=== PATIENT | female | born 1955 | race Caucasian/White ===

== ENCOUNTER 2023-09-17 18:21 | Emergency (ER) | payer OTHER, SELFPAY ==
--- NOTE | ~2023-09-17 | CT_ITS ---
EXAMINATION: CT HEAD WITHOUT CONTRAST CT CERVICAL SPINE WITHOUT CONTRAST CLINICAL INFORMATION: Fall. Pain. COMPARISON: None available. TECHNIQUE: Contiguous axial imaging was performed through the head and cervical spine without intravenous administration of contrast. Sagittal and coronal reformatted images also obtained. This CT examination was performed using dose optimization techniques as appropriate, variously including the following: *Automated exposure control *Adjustment of mA and/or kV according to patient size (this includes techniques or standardized protocols for targeted exams where dose is matched to indication/reason for exam; i.e. extremities or head) *Use of iterative reconstruction technique DLP: 1003 mGy-cm FINDINGS: The lateral, third and fourth ventricles are normally outlined. The cortical sulci and basal cisterns are normally outlined as well. There is no acute territorial defect, hemorrhage or midline shift. The extra-axial spaces are unremarkable. Calvarium/scalp: Intact. Maxillofacial sinuses and mastoids: Clear as visualized. Cervical spine: There is straightening of the expected cervical spine curvature. There is diffuse zkjn-nu-urkxluib cervical disc degenerative change with loss of disc space, endplate change and posterior osteophytes associated with mild diffuse facet osteoarthritic hypertrophic change with multilevel hfck-fu-rbofmted spinal canal narrowing and multilevel mild neuroforaminal narrowing. The bony structures are osteopenic. No fracture is seen. The soft tissues are unremarkable. The visualized upper lung palma are clear. CT/CT cervical spine wo IV con IMPRESSION: 1. No acute intracranial process seen. 2. There is no acute cervical spine fracture or traumatic subluxation. 3. There is diffuse hnoj-to-dpqmnfad cervical spondylosis with multilevel vhuu-vb-foexrxio spinal canal narrowing and multilevel mild neuroforaminal narrowing.
--- NOTE | ~2023-09-17 | CT_ITS ---
EXAMINATION: CT HEAD WITHOUT CONTRAST CT CERVICAL SPINE WITHOUT CONTRAST CLINICAL INFORMATION: Fall. Pain. COMPARISON: None available. TECHNIQUE: Contiguous axial imaging was performed through the head and cervical spine without intravenous administration of contrast. Sagittal and coronal reformatted images also obtained. This CT examination was performed using dose optimization techniques as appropriate, variously including the following: *Automated exposure control *Adjustment of mA and/or kV according to patient size (this includes techniques or standardized protocols for targeted exams where dose is matched to indication/reason for exam; i.e. extremities or head) *Use of iterative reconstruction technique DLP: 1003 mGy-cm FINDINGS: The lateral, third and fourth ventricles are normally outlined. The cortical sulci and basal cisterns are normally outlined as well. There is no acute territorial defect, hemorrhage or midline shift. The extra-axial spaces are unremarkable. Calvarium/scalp: Intact. Maxillofacial sinuses and mastoids: Clear as visualized. Cervical spine: There is straightening of the expected cervical spine curvature. There is diffuse dyrh-fo-cwdkzfdh cervical disc degenerative change with loss of disc space, endplate change and posterior osteophytes associated with mild diffuse facet osteoarthritic hypertrophic change with multilevel savb-im-piigelco spinal canal narrowing and multilevel mild neuroforaminal narrowing. The bony structures are osteopenic. No fracture is seen. The soft tissues are unremarkable. The visualized upper lung palma are clear. CT/CT head/brain wo IV con IMPRESSION: 1. No acute intracranial process seen. 2. There is no acute cervical spine fracture or traumatic subluxation. 3. There is diffuse wpdw-qk-ijwctwiy cervical spondylosis with multilevel pwnx-da-mqyzasfd spinal canal narrowing and multilevel mild neuroforaminal narrowing.
--- NOTE | ~2023-09-17 | XR_ITS ---
EXAMINATION: XR HIP, LEFT CLINICAL INFORMATION: Fall COMPARISON: None available. TECHNIQUE: Two views of the left hip. FINDINGS: No fracture. Alignment is anatomic. Hip joint space is maintained. Soft tissues are unremarkable. XR/XR hip LT w [id number] IMPRESSION: Normal left hip.
[2023-09-17 18:28] VITALS: BP 168/69; BP 168/92; PULSE 65; RESP 15; TEMP 36.7; O2SAT 98; BMI 25.6
[2023-09-17 19:18] VITALS: BP 157/75; PULSE 63; RESP 18; TEMP 36.5; O2SAT 97
[2023-09-17 20:00] VITALS: BP 133/84; PULSE 62; RESP 18; TEMP 36.6; O2SAT 97
--- NOTE | 2023-09-17 20:16 | MHC.EDTECH ---
This tech took over care of patient at 1900,hourly rounds and vitals complete,patient is in a c-collar at this time,family at bedside call michele in reach
[2023-09-17 22:00] VITALS: BP 168/92; PULSE 73; RESP 18; TEMP 36.6; O2SAT 99
--- NOTE | 2023-09-17 23:29 | ED_ITS ---
HPI - Fall General Chief Complaint: Fall Stated Complaint: head strike after fall, shaken up, nausea, collar Time Seen by Provider: 09/17/23 23:02 Source: patient, family (Son) and EMS Mode of arrival: EMS Limitations: no limitations History of Present Illness ED Provider: DR. Baptiste HPI Narrative: 68-year-old female came in for evaluation after sustained a fall at [facility]. Patient slipped and fell over a wet floor landed on her left side, hitting her head on the floor, no LOC, complaining of headache, neck pain, and left hip pain. No history of AC. Related Data Allergies Allergy/AdvReac Type Severity Reaction Status Date / Time cyclobenzaprine Allergy Hives Verified 09/17/23 18:38 [From Flexeril] SEASONAL ALLERGIES Allergy Unknown UNKNOWN Uncoded 09/17/23 18:38 Review of Systems Review of Systems: All other systems are reviewed and are negative Constitutional: Reports as per HPI and Reports no additional constitutional complaints Eyes: Reports as per HPI and Reports no additional eye complaints Reports system reviewed and no additional complaints, except as documented Cardiovascular: Reports as per HPI and Reports no additional cardiovascular complaints Respiratory: Reports as per HPI and Reports no additional respiratory complaints Gastrointestinal: Reports as per HPI and Reports no additional gastrointestinal complaints Genitourinary: Reports no additional female genitourinary complaints Musculoskeletal: Reports no additional musculoskeletal complaints Skin/Breast: Reports system reviewed and no additional complaints, except as docu Psychiatric: Reports no additional psychiatric complaints Endocrine: Reports no additional endocrine complaints Hematologic/Lymphatic: Reports no additional hematologic/lymphatic complaints Allergic/Immunologic: Reports no additional allergic/immunologic complaints Reports system reviewed and no additional complaints, except as documented and Reports Abnormal speech present [facility] Social History Social History Alcohol intake: never Smoked in Last 30 Days: No Use of substances other than those prescribed or required for medical reasons: No Any prior treatment program specific to substance use: No Advance Directives: No Advance Directives Information Provided: No Physical Exam Vital Signs: Vital Signs: Last Vital Signs Temp 97.9 F 09/17/23 22:00 Pulse 73 09/17/23 22:00 Resp 18 09/17/23 22:00 BP 168/92 H 09/17/23 22:00 Pulse Ox 99 09/17/23 22:00 O2 Del Method Room Air 09/17/23 22:00 BMI result Body Mass Index 25.6 Vital signs have been reviewed and appear to be correct. Blood pressure elevated. Heart rate normal. Respiratory rate normal. Temperature normal. Oxygen saturation normal. Appearance: Alert. Oriented X3. No acute distress. Head: Normal external exam. Normocephalic. Atraumatic. No Quinn signs noted. No raccoon eyes noted Eyes: PERRLA. EOMI. Conjunctiva and sclera normal. Eyelids normal. ENT: TM's Normal. Pharynx normal. Uvula midline. Moist mucous membranes. No trismus noted. No drooling noted. No muffled voice noted. Neck: Normal inspection. Neck supple. FROM. No adenopathy. Thyroid Normal. No meningeal signs. No neck mass noted. CVS: Normal heart rate and rhythm. Heart sound normal. No murmurs noted. Pulses normal throughout. Respiratory: No respiratory distress. Painless inspiration. Breath sounds normal. No wheezes/rales/rhonchi noted. Chest nontender. No accessory muscle usage noted or decreased air movement noted. Abdomen: Soft and nontender. Bowel sounds normal in all 4 quadrants. No distention noted. No organomegaly noted. No visible injury noted. Back: No CVA tenderness. Full range of motion noted. Skin: Skin warm and dry. Normal skin color. Normal skin turgor. No rashes/lesions/lacerations noted. Extremities: No lower extremity edema. Extremities exhibit normal range of motion. Extremities nontender. Neuro: Oriented X 3, GCS of 15. Cranial nerve exam: II-XII are grossly intact No motor deficit. No sensory deficit. Reflexes normal. Course Reevaluation(s) Reevaluation #1: GCS of 15, negative head/C-spine CT. Left hip x-ray showed no acute fracture or dislocation able to ambulate in the emergency department. Time: 23:37 Medical Decision Making Differential Diagnosis Differential Diagnoses: The differential diagnosis associated with the presentation includes (Intracranial bleed, cervical spine injury, extremity injury, left hip fracture, left hip dislocation,Chest injury, abdominal injury.) Admission/Observation Consideration of admission/observation: Escalation of care including admission/observation considered Independent Interpretation I performed an independent interpretation of an: Plain X-Ray (Left hip: Normal left hip) and CT Scan (Head/C-spine: 1. No acute intracranial process seen. 2. There is no acute cervical spine fracture or traumatic subluxation. 3. There is diffuse ghkg-pg-hfnuvoeq cervical spondylosis with multilevel salx-eu-wvetnzym spinal canal narrowing and multilevel mild neuroforaminal narrowing. ) Radiology Impression Discussion of test interpretation with radiology: I have reviewed the radiologist's reading. Discharge Plan Discharge Clinical Impression: Accident due to mechanical fall without injury, Contusion of hip, left Patient Disposition: Home, Self-Care Instructions: Hip Contusion (ED) Print Language: [place]
[2023-09-18 00:40] VITALS: BP 132/74; PULSE 62; RESP 18; TEMP 36.6; O2SAT 100
--- NOTE | 2023-09-18 00:46 | MHC.EDTECH ---
Rounds and vitals completed,patient is waiting for results at this time,patient is watching TV call michele in reach
== END 2023-09-18 07:09 | disposition home or self-care (01) ==
PROVIDERS: Emergency Provider Emergency Medicine
DX: S70.02XA Contusion of left hip, initial encounter (principal); W18.39XA Other fall on same level, initial encounter; R51.9 Headache, unspecified; Y93.89 Activity, other specified; Y92.59 Other trade areas as the place of occurrence of the external cause; Y99.9 Unspecified external cause status
CPT/HCPCS: 70450; 72125; 73502; 99284